=== PATIENT | female | born 1960 | race Caucasian/White ===

== ENCOUNTER 2016-10-16 22:16 | Emergency (ER) | payer OTHER ==
--- NOTE | 2016-10-16 22:28 | ED DYSPNEA/ASTHMA COMPLAINT ---
History of Present Illness General Chief Complaint: Dyspnea (COPD, CHF, Other) Stated Complaint: SOB Source: patient, family Exam Limitations: no limitations Vital Signs & Intake/Output Vital Signs & Intake/Output Vital Signs Date Time Temp Pulse Resp B/P B/P Pulse O2 O2 Flow FiO2 Mean Ox Delivery Rate 10/17 0013 97.5 119 20 143/64 100 10/16 2307 94 Nasal 2.0L Cannula 10/16 2243 94 Nasal 3.0L Cannula 10/16 2232 94 Nasal 2.0L Cannula 10/16 2229 98.2 80 16 169/78 98 Room Air Room Air Triage Nurses Notes Reviewed? yes Onset: Abrupt Duration: day(s): (3), constant, getting worse Timing: recent history Severity: moderate, severe HPI: 55-year-old female comes into emergency room with complaints of shortness of breath and her asthma acting up. Patient has a history of asthma. Ran out of her nebulizer solutions. Albuterol pump not helping. Patient has been sick with a chest cold for the last few days with some cough and upper story symptoms. Denies any fever chills. Denies any vomiting. Denies any prior cardiac history. History of hypertension but denies any other medical problems other than her asthma. Patient denies ever being admitted to the hospital for her asthma. Denies any history of intubation. (DEBBIE MARES) Allergies Coded Allergies: nickel (Intermediate, RASH 10/16/16) (BETI HYLTON,MATHEUS Ramirez) Past History Travel History Traveled to [place] past 21 day No Medical History Any Pertinent Medical History? see below for history Cardiovascular: hypertension Respiratory: asthma Influenza Vaccine: 03/01/07 Surgical History Surgical History: non-contributory Psychosocial History Who do you live with Spouse What is your primary language Spanish Family History Hx Contributory? No (DEBBIE MARES) Review of Systems Review of Systems Constitutional: Reports: no symptoms. EENTM: Reports: no symptoms. Respiratory: Reports: see HPI. Cardiovascular: Reports: no symptoms. GI: Reports: no symptoms. Genitourinary: Reports: no symptoms. Musculoskeletal: Reports: no symptoms. Skin: Reports: no symptoms. Neurological/Psychological: Reports: no symptoms. Hematologic/Endocrine: Reports: no symptoms. Immunologic/Allergic: Reports: no symptoms. All Other Systems: Reviewed and Negative (DEBBIE MARES) Physical Exam Physical Exam General Appearance: well developed/nourished, alert, awake, mild distress Head: atraumatic, normal appearance Eyes: Bilateral: normal appearance, EOMI. Ears, Nose, Throat: normal pharynx, normal ENT inspection Neck: normal inspection Respiratory: decreased breath sounds, wheezing, respiratory distress (MILD) Cardiovascular: regular rate/rhythm, tachycardia Extremities: normal inspection, no edema Neurologic/Psych: awake, alert, oriented x 3, normal gait, normal mood/affect Skin: intact, normal color Core Measures ACS in differential dx? No Severe Sepsis Present: No Septic Shock Present: No (DEBBIE MARES) Progress Differential Diagnosis: asthma, AMI, bronchitis, costochondritis, CHF, COPD, musculoskeletal pain, pericarditis, pulmonary embolism, pneumonia, pneumothorax, rib fracture, unstable angina Plan of Care: Orders Procedure Date/time Status XRY-CHEST XRAY, PA AND LATERAL 10/17 2247 Active Current Medications Sig/Je Start time Last Medication Dose Stop Time Status Admin Albuterol Sulfate 3 ML ONCE ONE 10/16 2300 UNVr (Proventil) 10/16 2301 Albuterol Sulfate 3 ML ONCE ONE 10/16 2300 UNVr (Proventil) 10/16 2301 Albuterol Sulfate 3 ML ONCE ONE 10/16 2300 UNVr (Proventil) 10/16 2301 Albuterol Sulfate 3 ML ONCE ONE 10/16 2300 UNVr (Proventil) 10/16 2301 Albuterol Sulfate 3 ML ONCE ONE 10/16 2300 UNVr (Proventil) 10/16 2301 Albuterol Sulfate 3 ML ONCE ONE 10/16 2300 UNVr (Proventil) 10/16 2301 Diagnostic Imaging: Viewed by Me: Radiology Read. Discussed w/RAD: Radiology Read. Initial ED EKG: none Hand-Off Endorsed To: BETI HYLTON,MATHEUS Ramirez Endorsed Time: 2248 Pending: Xray (DEBBIE MARES) CXR Impression: PATIENT: AYANNA MITCHELL PRESENT AGE: 55 PATIENT ACCOUNT NO: [id number] : 61 LOCATION: [facility] ORDERING PHYSICIAN: DEBBIE CONLEY SERVICE DATE: 10/16/16 EXAM TYPE: RAD - XRY-CHEST XRAY, PA AND LATERAL EXAMINATION: XR CHEST CLINICAL INFORMATION: Shortness of breath COMPARISON: None TECHNIQUE: 2 views of the chest were obtained. FINDINGS: The lungs are hyperexpanded with increase of the retrosternal clear space. There is no focal consolidation, edema, or effusion. No pneumothorax. The cardiomediastinal silhouette is within normal limits. No acute osseous abnormality. IMPRESSION: No acute pulmonary findings. DICTATED BY: PRINCESS SHEN MD DATE/TIME DICTATED:10/16/162319 BOAT DESIGNER:HOWARD DATE/ TIME TRANSCRIBED:10/16/162319 CONFIDENTIAL, DO NOT COPY WITHOUT APPROPRIATE AUTHORIZATION. <Electronically signed in Other Vendor System> SIGNED BY: HERMELINDA HYLTON,PRINCESS 10/16/162323 Comments: Patient is doing much better. Patient is speaking complete sentences. Patient is comfortable. Patient is on continuous nebs. There is better air movement. Remains in expiratory wheeze. We'll continue to monitor. CONTINOUS NEBS ARE DONE. PT IS FEELING MUCH BETTER. AMBULATORY SAT 94% RZ (BETI HYLTON,MATHEUS Ramirez) Departure Departure Condition: Stable Clinical Impression Primary Impression: Asthma exacerbation Referrals: GEM HYLTON,MAXIMILIAN Stafford (PCP/Family) Departure Forms: Customer Survey General Discharge Information (DEBBIE MARES) Departure Disposition: HOME OR SELF CARE Additional Instructions: RETURN IF SYMPTOMS WORSEN OR FOR ANY CONCERNS Prescriptions: Current Visit Scripts Prednisone 1 TAB PO DAILY #30 TAB TAKE 4 TABS FOR 3 DAYS THEN TAKE 3 TABS FOR 3 DAYS THEN TAKE 2 TABS FOR 3 DAYS THEN TAKE 1 TAB FOR 3 DAYS PA/BOOKING OFFICER Co-Sign Statement Statement: ED Attending supervision documentation- [X] I saw and evaluated the patient. I have also reviewed all the pertinent lab results and diagnostic results. I agree with the findings and the plan of care as documented in the PA's/BOOKING OFFICER's documentation. [X] I have reviewed the ED Record and agree with the PA's/BOOKING OFFICER's documentation. [] Additions or exceptions (if any) to the PAs/BOOKING OFFICER's note and plan are summarized below: [] (BETI HYLTON,MATHEUS Ramirez) Critical Care Note Critical Care Note Critical Care Time: 30-74 min (45) (DEBBIE MARES)
--- NOTE | 2016-10-16 23:24 | RADIOLOGY REPORT ---
EXAMINATION: XR CHEST CLINICAL INFORMATION: Shortness of breath COMPARISON: None TECHNIQUE: 2 views of the chest were obtained. FINDINGS: The lungs are hyperexpanded with increase of the retrosternal clear space. There is no focal consolidation, edema, or effusion. No pneumothorax. The cardiomediastinal silhouette is within normal limits. No acute osseous abnormality. IMPRESSION: No acute pulmonary findings.
[2016-10-17 00:13] VITALS: BP 143/64
[2016-10-17] MEDS ORDERED: PREDNISONE10 M2 PO (01:20)
== END 2016-10-17 01:29 ==
LOC: ERH 22:16
DX: J45.901 Unspecified asthma with (acute) exacerbation (principal)
CPT/HCPCS: 1263; 1426; 94644; 96374; 99291; J2930